=== PATIENT | male | born 1960 | race Caucasian/White ===

== ENCOUNTER 2017-09-18 06:38 | Day surgery (SDC) | payer BC ==
[~2017-09-18] VITALS: Ht 175.3 cm; Wt 71.2 kg
[2017-09-18] VITALS (10 sets, daily range): BP systolic 110–138; BP diastolic 66–92
[~2017-09-18 06:38] MED LIST: ASPIRIN EC325 MG ORAL; CRESTOR10 M1 ORAL; CYCLOBENZAPRINE10 MG ORAL; DICLOFENAC SODI75 MG ORAL; GABAPENTIN300 MG ORAL; NIASPAN1000 MG ORAL; TRUVADA 200 MG1 EAC1 ORAL; ZETIA10 MG ORAL
[2017-09-18] MEDS ORDERED: Dexamethasone 4mg/ml vial ONE ×2 (07:13→07:38)
[2017-09-18] MEDS ORDERED: EPINEPHrine 1mg/1ml Amp ONE ×2 (07:14→07:38)
[2017-09-18] MEDS ORDERED: Bupivacaine 0.25% Inj 30ml INJ ONE (07:14)
[2017-09-18] MEDS ORDERED: cefOXitin 1gm Inj ONE (07:14)
[2017-09-18] MEDS ORDERED: Ropivacaine 5mg/ml Vial 30ml INJ ONE ×2 (07:15→07:38)
[2017-09-18] MEDS ORDERED: Acetic Acid 3% Solution 15ml TOPIC ONE (07:15)
--- NOTE | 2017-09-18 07:24 | Pre-Procedure Note/Attestation ---
Pre-Procedure Note/Attestation Complete Prior to Procedure Planned Procedure: not applicable Procedure Narrative: high resolution anoscopy with biopsies Indications for Procedure Pre-Operative Diagnosis: HPV Attestation I attest that I discussed the nature of the procedure; its benefits; risks and complications; and alternatives (and the risks and benefits of such alternatives ), prior to the procedure, with the patient (or the patient's legal software sales representative). I attest that, if there was a reasonable possibility of needing a blood transfusion, the patient (or the patient's legal software sales representative) was given the [facility] standardized written summary, pursuant to the Douglas Ramses Blood Safety Act ([place] Health and Safety Code # 1645, as amended). I attest that I re-evaluated the patient just prior to the surgery and that there has been no change in the patient's H&P, except as documented below: BRITTNY KELLEY Sep 18, 2017 07:24
[2017-09-18] MEDS ORDERED: Alfentanil 2ml Inj ONE (07:30)
[2017-09-18] MEDS ORDERED: Sterile Water For Irrig 2000ml IRRIG ONE (07:30)
[2017-09-18] MEDS ORDERED: Lidocaine 1% Plain 30 ml INJ ONE (07:30)
[2017-09-18] MEDS ORDERED: Propofol 1,000mg/ 100ml btl IV ONE (07:30)
[2017-09-18] MEDS ORDERED: NS Irrig 1000ml ONE (07:30)
[2017-09-18] MEDS ORDERED: Lidocaine 1% MPF 10mg/ml 5ml ONE (07:30)
[2017-09-18] MEDS ORDERED: LR 1000ml ONE (07:30)
[2017-09-18] MEDS ORDERED: LR 1000ml 1,000 ML IVLG SCH (07:37)
--- NOTE | 2017-09-18 07:37 | Anethesia Preoperative Eval ---
Anesthesia Pre-op PMH/ROS General Date of Evaluation: Sep 18, 2017 Time of Evaluation: 07:31 Anesthesiologist: Jan ASA Score: ASA 3 Mallampati Score Class I : Soft palate, uvula, fauces, pillars visible Class II: Soft palate, uvula, fauces visible Class III: Soft palate, base of uvula visible Class IV: Only hard plate visible Mallampati Classification: Class III Surgeon: Hermelindo Diagnosis: Anal Condylomata Surgical Procedure: Excision And Fulguration Anal Condylomata Anesthesia History: none Family History: no anesthesia problems Allergies: Coded Allergies: CODEINE (Verified Adverse Reaction, Intermediate, nausea/dizziness, ) Medications: see eMAR Past Medical History Cardiovascular: Reports: HTN, other - HL Pulmonary: Reports: ANNABELLE - CPAP PM Gastrointestinal/Genitourinary: Reports: GERD HEENT: Reports: other - Lasik Musculoskeletal/Integumentary: Reports: DDD - Back PSxH Narrative: Lumbar 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 Exam Physician Exam Last Vital Signs Date Time Temp Pulse Resp B/P (MAP) Pulse Ox O2 Delivery O2 Flow Rate FiO2 09/18/17 06:58 98.6 75 20 115/84 97 Room Air Constitutional: NAD Neurologic: CN 2-12 intact Cardiovascular: RRR Respiratory: CTA Gastrointestinal: S/NT/ND Airway Exam Mallampati Score: Class III MO: full ROM: limited Teeth: intact Anesthesia Pre-op A/P Risk Assessment & Plan Assessment: ASA 3 Plan: GA, BIS Status Change Before Surgery: No Pre-Antibiotics Dru Gram Cefoxitin IV Given Within 1 Hr of Incision: Yes Time Given: 07:38 Doug Montoya MD Sep 18, 2017 07:37
--- NOTE | 2017-09-18 07:38 | Immediate Post-Op Evaluation ---
Immediate Post-Op Evalulation Immediate Post-Op Evalulation Procedure: Excision And Fulguration Anal Condylomata Date of Evaluation: Sep 18, 2017 Time of Evaluation: 08:33 IV Fluids: 800 LR Blood Products: 0 Estimated Blood Loss: 8 Urinary Output: 0 Blood Pressure Systolic: 132 Blood Pressure Diastolic: 77 Pulse Rate: 90 Respiratory Rate: 16 O2 Sat by Pulse Oximetry: 100 Temperature (Fahrenheit): 98 Pain Score (1-10): 1 Nausea: No Vomiting: No Complications 0 Patient Status: awake, reacts, patent, none Hydration Status: adequate Dru Gram Cefoxitin Given Within 1 Hr of Incision: Yes Time Given: 07:38 Doug Montoya MD Sep 18, 2017 07:38
--- NOTE | 2017-09-18 07:39 | 48 Hour Post Anesthesia Eval ---
Post Anesthesia Evaluation Procedure: Excision And Fulguration Anal Condylomata Date of Evaluation: Sep 18, 2017 Time of Evaluation: 10:46 Blood Pressure Systolic: 128 0: 87 Pulse Rate: 72 Respiratory Rate: 18 Temperature (Fahrenheit): 98.4 O2 Sat by Pulse Oximetry: 100 Airway: patent Nausea: No Vomiting: No Pain Intensity: 1 Hydration Status: adequate Cardiopulmonary Status: Stable Mental Status/LOC: patient returned to baseline Follow-up Care/Observations: 0 Post-Anesthesia Complications: 0 Follow-up care needed: ready to discharge Doug Montoya MD Sep 18, 2017 07:39
[2017-09-18] MEDS ORDERED: oxyCODONE HCL/Acetaminophen 5/325mg ORAL PRN (07:45)
[2017-09-18] MEDS ORDERED: DiphenhydrAMINE 50mg/ml Inj IVP PRN (07:45)
[2017-09-18] MEDS ORDERED: Norco 5mg/325mg tab ORAL PRN (07:45)
[2017-09-18] MEDS ORDERED: Atropine Inj 1mg/10ml Syr IV PRN (07:45)
[2017-09-18] MEDS ORDERED: Norco 7.5mg/325mg tab ORAL PRN (07:45)
[2017-09-18] MEDS ORDERED: Hydromorphone 0.5mg/0.5ml inj IVP PRN (07:45)
[2017-09-18] MEDS ORDERED: Ketorolac 60mg Inj IV PRN (07:45)
[2017-09-18] MEDS ORDERED: Labetalol 5mg/ml 20ml vial IV PRN (07:45)
[2017-09-18] MEDS ORDERED: fentaNYL 100 mcg/2 mL IV PRN (07:45)
[2017-09-18] MEDS ORDERED: LORazepam Inj 2mg/ml 1ml IV PRN (07:45)
[2017-09-18] MEDS ORDERED: Midazolam 2mg/2ml Inj IVP PRN (07:45)
[2017-09-18] MEDS ORDERED: Metoclopramide 10mg/2ml Inj IVP PRN (07:45)
[2017-09-18] MEDS ORDERED: Ketorolac 30mg Inj IV PRN (07:45)
--- NOTE | 2017-09-18 08:23 | Brief Operative Note ---
Immediate Post Operative Note Operative Note Pre-op Diagnosis: HPV Procedure: High-resolution anoscopy with biopsies Post-op Diagnosis: same as pre-op Surgeon: Mer Kelley MD Anesthesiologist: Doug Montoya MD Anesthesia: moderate sedation Specimen: yes Complications: none Condition: stable Fluids: see anesthesia record Estimated Blood Loss: minimal Drains: none Implant(s) used?: No MER KELLEY Sep 18, 2017 08:23
[2017-09-18] MEDS ORDERED: Artificial Tears 1.4% Op Soln BOTH EYES ONE (09:00)
--- NOTE | 2017-09-18 16:00 | Operative Note - Dictated ---
DATE OF OPERATION: 09/18/2017 PREOPERATIVE DIAGNOSIS: High-grade HPV. POSTOPERATIVE DIAGNOSIS: High-grade HPV. PROCEDURE: High-resolution anoscopy with biopsies. SURGEON: Mer Casarez M.D. ANESTHESIOLOGIST: Doug Montoya M.D. ANESTHESIA: Propofol sedation with local anesthetic. INDICATION FOR PROCEDURE: The patient is a 57-year-old male, who is known to [place] for previous history of excision and fulguration of anal condyloma on 07/08/2015. The patient had a recent anal Pap smear, which showed some high-grade dysplasia. In light of the patient's findings, it was determined at this time to proceed with high-resolution anoscopy with biopsies. DESCRIPTION OF PROCEDURE: Upon consent of the patient, the patient was brought to the procedure room and placed in left lateral decubitus position. Once adequate sedation was established with propofol drip, the patient's buttocks were then prepped and draped in usual surgical fashion. A 40 mL of 0.5% ropivacaine with epinephrine mixed with 6 mg of dexamethasone was used as a perianal and pudendal block. A Hill-Garza retractors were placed into the anal canal. There were noted to be some moderate-sized internal hemorrhoids. Multiple biopsies were taken from all four quadrants of the perineal region, anal verge, and dentate line. These were all sent off of the field as separate specimens. The anal canal was stained with 3% acetic acid. All areas of staining white were electrofulgurated as well. The anal canal was then irrigated and hemostasis was confirmed. Sterile dry dressing was used as an outer dressing. Sponge, needle, instrument counts were correct at the end the case. The patient was awakened from anesthesia and brought to the postanesthesia recovery room in stable condition. ESTIMATED BLOOD LOSS: Less than 5 mL. DRAINS: None. SPECIMEN: Multiple biopsies in the perianal region, anal verge, and dentate line. COMPLICATIONS: None. Mer Casarez M.D. DR: RANDI/DACIA JOB#: [id number] CC: Mer Casarez M.D.; Fax#: [phone] Cheng Hunter M.D.
== END 2017-09-18 10:25 | disposition home or self-care (01) ==
LOC: SUR 06:38
DX: A63.0 Anogenital (venereal) warts (principal); I10 Essential (primary) hypertension; E78.5 Hyperlipidemia, unspecified; K21.9 Gastro-esophageal reflux disease without esophagitis; G47.33 Obstructive sleep apnea (adult) (pediatric); Z88.6 Allergy status to analgesic agent; M47.9 Spondylosis, unspecified
CPT/HCPCS: 46607; J0171; J0694; J1100; J1885; J2001; J2250; J2704; J2795; J3490; J7120; 94003; 94150